=== PATIENT | female | born 1990 | race Caucasian/White ===

== ENCOUNTER 2021-02-09 11:03 | Outpatient (CLI) | payer BC, SELFPAY ==
--- NOTE | ~2021-02-09 | CT_ITS ---
EXAMINATION: CT abdomen pelvis w con EXAM DATE: 02/09/2021 12:18 INDICATION: Left lower quadrant abdominal pain, pain w/ N/V/D x 1day . TECHNIQUE: Spiral CT of the abdomen and pelvis was performed following intravenous injection of 100 m L Omnipaque 350. Axial, coronal and sagittal images of the abdomen and pelvis were reviewed. The do se-length product (DLP) for this examination was 659.10 mGy-cm. The exposure was tailored according to patient size (auto mA exposure control), and iterative reconstruction (ASIR) was used as additiona l dose reduction technique. There is no prior study for comparison. FINDINGS: There is hepatic steatosis without suspicious focal lesion identified. Spleen, adrenal glan ds, pancreas are unremarkable. Gallbladder is unremarkable. No biliary obstruction. Portal and spl enic veins are patent. Kidneys enhance symmetrically. There is no hydronephrosis. There is subcenti meter left renal cyst. The uterus and ovaries are unremarkable, no adnexal mass. The bladder is unr emarkable. There is no retroperitoneal or pelvic lymphadenopathy. The appendix is normal. The stomach and small bowel are unremarkable. Mild transverse and descendin g colonic wall edema suspected, probably mild colitis. No free intraperitoneal gas. The heart is normal in size. There are no pericardial or pleural effusions. The lung bases are unremarkable. Th e bones are unremarkable. IMPRESSION: Mild transverse, descending colonic colitis. Reviewed, dictated and finalized at location B.
== END 2021-02-09 11:04 | disposition home or self-care (01) ==
LOC: CHSIMG 11:08
PROVIDERS: PCP Internal Medicine; Visit Provider Internal Medicine
DX: R10.9 Unspecified abdominal pain (principal)
CPT/HCPCS: 74177; Q9967

== ENCOUNTER 2021-08-25 09:05 | Outpatient (CLI) | payer BC, SELFPAY ==
[2021-08-25 10:30] LABS: Influenza A QL RT-PCR Negative (Negative); Influenza B QL RT-PCR Negative (Negative); SARS-CoV-2 RNA PCR Negative (Negative)
== END 2021-08-25 09:06 | disposition home or self-care (01) ==
LOC: CHSLAB 09:07
PROVIDERS: PCP Internal Medicine; Visit Provider Internal Medicine
DX: J06.9 Acute upper respiratory infection, unspecified (principal); Z20.822 Contact with and (suspected) exposure to COVID-19
CPT/HCPCS: 87502; C9803; U0003; U0005

== ENCOUNTER 2024-05-12 10:12 | Outpatient (RCR) | payer BC, SELFPAY ==
[2024-05-12] MEDS: RHO(D) IMMUNE GLOBULIN 300 MCG/2 ML SYRINGE IM (14:54)
== END 2024-08-10 23:59 | disposition home or self-care (01) ==
LOC: ANHLAB 10:12
PROVIDERS: PCP Internal Medicine; Visit Provider Obstetrics & Gynecology
DX: Z29.13 Encounter for prophylactic Rho(D) immune globulin (principal); O36.0130 Maternal care for anti-D [Rh] antibodies, third trimester, not applicable or unspecified; Z3A.00 Weeks of gestation of pregnancy not specified
CPT/HCPCS: 36415; 85461; 86850; 86900; 86901; 90384; 96372; J2790

== ENCOUNTER 2024-06-16 10:03 | Observation (INO) | payer BC, SELFPAY ==
[2024-06-16 10:31] VITALS: BP 146/91; PULSE 92
[2024-06-16 10:46] VITALS: BP 133/90; PULSE 78
[2024-06-16 11:01] VITALS: BP 147/96; PULSE 100
[2024-06-16 11:18] LABS: Add Urine Microscopic? YES; Appearance Urine Cloudy (Clear); Bacteria Urine 3+ /hpf; Bilirubin Urine Negative (Negative); Blood Urine 2+ (Negative); Color Urine Yellow (Yellow); Glucose Urine UA Negative (Negative); Ketones Urine Trace mg/dL (Negative); Leukocyte Esterase Ur Trace LEU/UL (Negative); Need Manual Microscopic Reviewed; Nitrate Urine Negative (Negative); Protein Urine 2+ mg/dL (Negative); Specific Grav Ur 1.024 (1.001-1.035); Squamous Epithelial Cell Urine Few /hpf (Few); Urobilinogen Urine 0.2 mg/dL (<2.0); pH Urine 6.5 (5.0-9.0)
[2024-06-16] MEDS: Please add drug allergy info to patient profile. 1 EACH XX (11:29)
--- NOTE | 2024-06-16 11:32 | OBADM ---
This patient, Arlene Nelson, admitted to the OB room [facility] for observation. Patient/family oriented to hospital policies and general routines including ID bracelet, bed and alarms, visiting hours, pain management, procedures, bathroom and other care routines, personal items, smoking policy, room service/diet, and visiting hours. Patient/Family are encouraged to report perceived risks to care and to ask questions if they do not understand what they are told or what they should do.
[2024-06-16] MEDS: ACETAMINOPHEN 500 MG TABLET 1000 MG PO (11:45)
[2024-06-16] MEDS: NITROFURANTOIN MONOHYD MACROCR 100 MG CAP PO (11:51)
[2024-06-16 11:56] VITALS: BP 133/90; PULSE 78
--- NOTE | 2024-06-16 12:08 | PC.NURSE ---
1003: Patient arrived on unit complaining of lower back pain that is radiating into her hips and lower pubic area. Patient is rating her pain a 7 out of 10 and states she has been feeling this pain since 0800 this morning. Patient states she has not taken any Tylenol and has a history of UTIs. Patient states she has been drinking plenty of water today. RN encouraged patient to PO hydrate while she is here. 1050: sign hanger OB , Dr. Anand, in department, RN reported patient's symptoms and patient's behavior to OB. NST was also reported to OB. OB aware patient is very uncomfortable in bed but no contractions were noted on NST, but uterine irritability was noted. Orders to call OB with urine results. 1122: DEANA Boone phoned Dr. Anand to inform her of patient's urine results. OB aware both DEANA Young and DEANA Boone have been at bedside palpating patient's fundus, no contractions noted by either RNs. OB aware toco was readjusted multiple times and patient is still experiencing a moderate amount of lower back pain. Orders to give patient Tylenol and 100 of Macrobid and discharge home with a prescription for Macrobid BID for 3 days. 1130: RN explained to patient when to return to the hospital. RN offered to perform cervical exam before patient left, patient declines cervical exam at this time. Patient states she believes the baby may be laying on a nerve causing her discomfort. RN suggest patient try ice/heat therapy, and hands and knees to try and relieve any nerve pain she may be having. Patient has no further questions at this time.
--- NOTE | 2024-06-17 08:13 | P.PNOB_ITS ---
OB - Triage/Final Diagnosis Visit Information Reason for evaluation: other (cramping, UTI) Comments/Additional reasons for admission: I have assessed the risk for this patient, Arlene Martinez Omar, and determined that she would benefit from observation care. Evaluation Laboratory results: Laboratory Tests 06/16/24 10:19 Urine Color Yellow Urine Appearance Cloudy H Urine pH 6.5 Ur Specific [place] 1.024 Urine Protein 2+ H Urine Glucose (UA) Negative Urine Ketones Trace H Ur Blood (Man) 2+ H Urine Nitrate Negative Urine Bilirubin Negative Urine Urobilinogen 0.2 Add Ur Microanalysis Reviewed Leukocyte Esterase Rfl Trace H Urine RBC 3-5 H Urine WBC 11-20 H Ur Squamous Epith Cells Few Urine Bacteria 3+ H Urine Casts 3-5 Vital signs: Vital Signs - 24 hr 06/16/24 10:31 06/16/24 10:46 06/16/24 11:01 Pulse Rate 92 78 100 Blood Pressure 146/91 H 133/90 147/96 H Blood Pressure [Right Arm] 06/16/24 11:56 Pulse Rate 78 Blood Pressure Blood Pressure [Right Arm] 133/90
== END 2024-06-16 11:50 | disposition home or self-care (01) ==
PROVIDERS: Admitting Provider Obstetrics & Gynecology Gynecology; PCP Internal Medicine; Visit Provider Obstetrics & Gynecology Gynecology
DX: O26.893 Other specified pregnancy related conditions, third trimester (principal); R25.2 Cramp and spasm; O23.43 Unspecified infection of urinary tract in pregnancy, third trimester; N39.0 Urinary tract infection, site not specified; Z3A.31 31 weeks gestation of pregnancy
CPT/HCPCS: 59025; 81001; 87086; A9270; G0378; G0379